=== PATIENT | male | born 1970 | race Caucasian/White ===

== ENCOUNTER 2017-07-29 00:18 | Emergency (ER) | payer OTHER ==
[~2017-07-29] VITALS: Ht 177.8 cm; Wt 114.9 kg
[2017-07-29 00:19] VITALS: BP 160/98
== END 2017-07-29 01:52 | disposition home or self-care (01) ==
LOC: ED 01:42
DX: J15.9 Unspecified bacterial pneumonia (principal); G43.C0 Periodic headache syndromes in child or adult, not intractable; E11.9 Type 2 diabetes mellitus without complications
CPT/HCPCS: 70450; 71046; 99284